=== PATIENT | male | born 1980 | race Hispanic/Latino ===

== ENCOUNTER 2018-01-10 15:49 | Emergency (ER) | payer OTHER ==
[2018-01-10 16:22] VITALS: BP 127/81; PULSE 98; RESP 16; TEMP 97.6; O2SAT 98
--- NOTE | 2018-01-10 19:09 | ED PDOC ---
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 States he's had the same job for 2 years which he describes as very stressful. States he feels intimidated and singled out by his manager of security. He has informed his HR department and is currently on short term leave as he has been feeling anxious and depressed when he thinks about his job. Denies SI/HI, hallucinations, chest pain, SOB. Past Medical History Reviewed: Historical Data, Nursing Documentation, Vital Signs Vital Signs: Last Vital Signs Temp 97.6 F 01/10/18 16:15 Pulse 98 H 01/10/18 16:15 Resp 16 01/10/18 16:15 BP 127/81 01/10/18 16:15 Pulse Ox 98 01/10/18 16:15 - Medical History PMH: Denies: Diabetes, Hepatitis, HIV, HTN, Seizures, Sexually Transmitted Disease Other PMH: anxiety, depression - Family History Family History: States: No Known Family Hx - Allergies Allergies/Adverse Reactions: Allergies Allergy/AdvReac Type Severity Reaction Status Date / Time No Known Allergies Allergy Verified 01/10/18 16:15 Review of Systems ROS Statement: Except As Marked, All Systems Reviewed And Found Negative Psych: Positive for: Anxiety, Depression Physical Exam - Reviewed Nursing Documentation Reviewed: Yes Vital Signs Reviewed: Yes - Physical Exam Appears: Positive for: Well, Non-toxic, No Acute Distress Head Exam: Positive for: ATRAUMATIC, NORMAL INSPECTION, NORMOCEPHALIC Skin: Positive for: Normal Color, Warm, DRY Eye Exam: Positive for: EOMI, Normal appearance, PERRL ENT: Positive for: Normal ENT Inspection Neck: Positive for: Normal, Painless ROM Cardiovascular/Chest: Positive for: Regular Rate, Rhythm Respiratory: Positive for: CNT, Normal Breath Sounds Gastrointestinal/Abdominal: Positive for: Normal Exam, Soft. Negative for: Tenderness Back: Positive for: Normal Inspection Extremity: Positive for: Normal ROM Neurologic/Psych: Positive for: Alert, Oriented, Mood/Affect (calm, cooperative) - ECG O2 Sat by Pulse Oximetry: 98 - Progress ED Course And Treament: Pt. evaluated by Maeve foundry worker apprentice, who spoke with Dr. Miller and cleared pt. for discharge. Disposition - Clinical Impression Clinical Impression: Anxiety - Patient ED Disposition Is Patient to be Admitted: No - Disposition Referrals: [facility] [Outside] [facility] [Outside] Disposition: Routine/Home Disposition Time: 18:30 Condition: STABLE Instructions: Anxiety, Adult (DC) Forms: [facility] ([place]), [facility] ED School/Work Excuse Print Language: SERBIAN
== END 2018-01-10 18:50 | disposition home or self-care (01) ==
LOC: H.ER 15:49
DX: F41.9 Anxiety disorder, unspecified (principal); F32.9 Major depressive disorder, single episode, unspecified